=== PATIENT | female | born 1945 | race Caucasian/White ===

== ENCOUNTER 2017-02-24 06:30 | Day surgery (SDC) | payer MEDICARE, BC ==
[2017-02-24] MEDS ORDERED: Sodium Chloride 0.9% 1,000 ML IV SCH (07:00)
[2017-02-24] MEDS ORDERED: Midazolam 1 MG/ML 2 ML SDV ONE (07:35)
[2017-02-24] MEDS ORDERED: Propofol 200 MG/20 ML SDV ONE (07:35)
[2017-02-24] MEDS ORDERED: fentaNYL 100 MCG/2 ML SDV ONE (07:35)
[2017-02-24 09:06] VITALS: BP 138/76
--- NOTE | 2017-02-28 08:29 | OR ---
DATE OF PROCEDURE: 02/24/2017 PROCEDURE: Colonoscopy. FINDINGS: 1. Descending colon polyp approximately 5 mm, completely removed (using cold biopsy forceps). 2. Linear ulceration in the rectum (gently biopsied using cold biopsy forceps to rule out malignancy). 3. No diverticulitis; 1 diverticula left. COMPLICATIONS: None. K 9 POLICE OFFICER: None. ANESTHESIA: MAC. RISKS: Risks, benefits, alternatives, and limitations including, but not limited to infection, bleeding, and perforation were explained to the patient, and she wished to proceed. PROCEDURE IN DETAIL: The patient was placed in left lateral decubitus position. Digital rectal exam was performed without abnormality. The scope was introduced and advanced atraumatically to the ileocecal valve. A photo was taken. The scope was brought back to the ascending, transverse, descending colon, and retroflexed. At the colonic anastomosis, there was one small probable polyp or this could be a fold due to the anastomosis. Nonetheless, this was removed using cold biopsy forceps. The patient had one tic remaining, no other evidence of diverticulosis or diverticulitis. In the rectum, there was a linear ulceration, which was not actively bleeding, but was biopsied using cold biopsy forceps. No abnormalities of retroflexed. The patient tolerated the procedure well. Branden Lake MD /[id number]
== END 2017-02-24 09:40 | disposition home or self-care (01) ==
LOC: JP.SDS 06:30
PROVIDERS: ATTEND Surgery
DX: Z12.11 Encounter for screening for malignant neoplasm of colon (principal); K51.40 Inflammatory polyps of colon without complications; K62.1 Rectal polyp; K57.30 Diverticulosis of large intestine without perforation or abscess without bleeding; M19.90 Unspecified osteoarthritis, unspecified site; Z90.49 Acquired absence of other specified parts of digestive tract
CPT/HCPCS: 45380; J2250; J2704; J3010; J7040; 88305

== ENCOUNTER 2021-02-16 05:49 | Inpatient (IN) | payer MEDICARE, BC ==
[2021-02-16] MEDS ORDERED: Acetaminophen 500 MG Tab PO ONE (06:30)
[2021-02-16] MEDS ORDERED: Isosulfan Blue 5 ML SDV ONE (06:35)
[2021-02-16] MEDS: Dextrose 5%-Lactated Ringers 1,000 ML IV SCH ×2 (06:47→14:01)
[2021-02-16] MEDS ORDERED: fentaNYL 250 MCG/5 ML SDV ONE (07:14)
[2021-02-16] MEDS ORDERED: Glycopyrrolate 0.2 MG/ML 5 ML MDV ONE (07:15)
[2021-02-16] MEDS ORDERED: Neostigmine Methylsulfate 1 MG/ML 5 ML Syringe ONE (07:15)
[2021-02-16] MEDS ORDERED: Propofol 200 MG/20 ML SDV ONE (07:15)
[2021-02-16] MEDS ORDERED: Ondansetron 4 MG/2 ML SDV ONE (07:15)
[2021-02-16] MEDS ORDERED: Succinylcholine 200 MG/10 ML MDV ONE (07:15)
[2021-02-16] MEDS ORDERED: Rocuronium 50 MG/5 ML Vial ONE (07:15)
[2021-02-16] MEDS ORDERED: Dexamethasone 4 MG/ML SDV ONE (07:15)
[2021-02-16] MEDS ORDERED: ceFAZolin 2 GM in Premix Bag 1 BAG IV ONE (07:45)
[2021-02-16] MEDS ORDERED: Lactated Ringers 1,000 ML ONE (08:37)
[2021-02-16] MEDS ORDERED: HYDROmorphone 2 MG Tab PO PRN (10:58)
[2021-02-16] MEDS ORDERED: HYDROmorphone 1 MG/ML Syringe IV PRN (11:00)
[2021-02-16] MEDS ORDERED: Ondansetron 4 MG/2 ML SDV IVPUSH PRN (11:00)
[2021-02-16] MEDS ORDERED: HYDROmorphone 0.5 MG/0.5 ML Syringe IVPUSH PRN (11:00)
[2021-02-16] MEDS: Ketoconazole 2% Crm 30 GM Tube TOP SCH ×2 (11:44→20:40)
[2021-02-16] MEDS: Acetaminophen 325 MG Tab PO SCH ×2 (14:01→19:10)
[2021-02-16] MEDS: ceFAZolin 2 GM in Premix Bag 1 BAG IV SCH ×2 (14:01→21:28)
[2021-02-16] MEDS: traMADol 50 MG Tab PO PRN (14:07)
[2021-02-16] MEDS: Metoprolol Succinate 50 MG Tab.ER PO SCH (20:32)
[2021-02-16] MEDS: Zolpidem 5 MG Tab PO PRN (21:28)
[2021-02-17] MEDS: Dextrose 5%-Lactated Ringers 1,000 ML IV SCH ×3 (01:14→21:38)
[2021-02-17] MEDS: Acetaminophen 325 MG Tab PO SCH ×4 (01:21→20:02)
[2021-02-17] MEDS: ceFAZolin 2 GM in Premix Bag 1 BAG IV SCH (05:18)
[2021-02-17] MEDS: Citalopram 10 MG Tab PO SCH (08:20)
[2021-02-17] MEDS: Aspirin 81 MG Tab.EC PO SCH (08:20)
[2021-02-17] MEDS ORDERED: Metoprolol Succinate 50 MG Tab.ER PO SCH (09:00)
--- NOTE | 2021-02-17 09:35 | PN ---
DATE OF SERVICE: 02/17/2021 SUBJECTIVE: Stephany is postop day #1. Oral intake 200. Urine output 900. LANDY drains x4 has put out 150, 20, 25, and 20 of a light red drainage. Pain has been controlled with Tylenol. REVIEW OF SYSTEMS: Remainder of review of systems negative for any pertinent positives and negatives. OBJECTIVE: GENERAL: Stephany Ferrara is a pleasant 75-year-old female. VITAL SIGNS: TPR is 96.9, 53, 18, blood pressure 161/88. HEENT: Negative. NECK: Supple. HEART: Regular rate and rhythm. SKIN: Jhonatan wrap pressure dressing over bilateral mastectomy site incisions. ALNDY drains x4 as noted above. ABDOMEN: Soft, nontender. EXTREMITIES: Without peripheral edema. ASSESSMENT: Bilateral modified radical mastectomy for cancer, left breast, and prophylactic right mastectomy for left breast cancer. Date of procedure: 02/16/2021. Surgeon: Justin Granados MD. PLAN: 1. Regular diet. 2. Set up home health care. 3. LANDY drain home teaching. 4. Plan discharge in a.m. 5. We will evaluate p.r.n. or in a.m. Janine Perez PA-C /[id number]
[2021-02-17] MEDS: FIBER GUMMIES PO SCH (10:14)
[2021-02-17] MEDS: Ketoconazole 2% Crm 30 GM Tube TOP SCH ×2 (10:28→20:02)
[2021-02-17] MEDS: traMADol 50 MG Tab PO PRN ×2 (10:30→16:40)
[2021-02-17] MEDS: Zolpidem 5 MG Tab PO PRN (20:01)
[2021-02-17] MEDS: Metoprolol Succinate 50 MG Tab.ER PO SCH (20:01)
[2021-02-18] MEDS: Acetaminophen 325 MG Tab PO SCH ×3 (00:45→09:17)
[2021-02-18 04:12] VITALS: PULSE 51
[2021-02-18 07:37] VITALS: BP 139/61
[2021-02-18] MEDS: FIBER GUMMIES PO SCH (08:55)
[2021-02-18] MEDS: Citalopram 10 MG Tab PO SCH (09:17)
[2021-02-18] MEDS: Aspirin 81 MG Tab.EC PO SCH (09:17)
[2021-02-18] MEDS: Ketoconazole 2% Crm 30 GM Tube TOP SCH (09:18)
--- NOTE | 2021-02-18 14:06 | DISCH ---
ADMISSION DIAGNOSIS: Invasive ductal carcinoma of left breast. DISCHARGE DIAGNOSIS: 1. Bilateral modified radical mastectomy for cancer of the left breast and prophylactic right mastectomy for left breast cancer. 2. Date of procedure: 02/16/2021. Surgeon: Justin Granados MD. HISTORY: Stephany Ferrara is a pleasant 75-year-old female with left breast cancer. After preoperative evaluation and discussion of possible risks and possible complications, she wished to proceed with surgical procedure. HOSPITAL COURSE: Stephany had her surgery on 02/16/2021. She had no operative complications. On postoperative day #1, she was started on a regular diet and she was taught how to manage her 4 LANDY drains when she goes home. On postoperative day 2, Stephany was able to be discharged to home with no complications. PHYSICAL EXAMINATION: GENERAL: Stephany Ferrara is a pleasant 75-year-old female. Height is 5 feet 6.14 inches, weight is 160 pounds. VITAL SIGNS: TPR: 95.4, 51, 15. Blood pressure 139/61. HEENT: Negative. NECK: Supple. HEART: Regular rate and rhythm. LUNGS: Clear. CHEST: Mastectomy emy are intact. No hematoma or seroma noted at incision site. She has 4 LANDY drains and they have put out 105, 22, 45, and 45 respectively of a light red drainage. ABDOMEN: Negative. EXTREMITIES: Negative for peripheral edema. DISPOSITION: Discharged to home. CONDITION: Stable and improving. FOLLOWUP APPOINTMENT: With Justin Granados MD on 02/25/2021 at 10:30 a.m. She is to get an Oncology appointment made by nursing staff for that same day. MEDICATIONS: Resume home medications. 1. Tylenol 650 mg p.o. q.6 hours p.r.n. pain. 2. Aspirin 81 mg p.o. daily. 3. Celexa 30 mg p.o. daily. 4. Ketoconazole 2% cream topical b.i.d. to affected area. 5. Metoprolol succinate/Toprol-XL 50 mg p.o. at bedtime. 6. Ambien 2.5 mg p.o. at bedtime. 7. Fosamax 70 mg p.o. weekly. 8. Hydrochlorothiazide 12.5 mg p.o. daily p.r.n. DIET: Regular diet as tolerated. Drink 8 to 10 glasses of water a day. ACTIVITY: No lifting greater than 10 pounds for 6 weeks. Driving: Do not drive for 1 week. May shower. DISCHARGE INSTRUCTIONS: Keep operative site clean and dry. Wear clothing that is comfortable. Strip, empty, measure, and record LANDY drainage 4 times a day and bring record of drainage to clinic appointments. Notify provider if any fever, increased pain, swelling, redness, drainage, nausea, or vomiting. SPECIAL INSTRUCTION: Use incentive spirometer 10 times every hour while awake for 1 week. /[id number]
--- NOTE | 2021-02-22 15:31 | OR ---
DATE OF PROCEDURE: 02/16/2021 SURGEON: Justin Granados MD PREOPERATIVE DIAGNOSES: 1. Carcinoma of left breast. 2. The patient's desire for contralateral prophylactic mastectomy. OPERATIVE PROCEDURES: 1. Left modified radical mastectomy with injection procedure for sentinel lymph node biopsy ([id number]). 2. Left modified radical mastectomy with injection procedure for identification of sentinel lymph nodes ([id number]). ANESTHESIA: General. OUTSOLE CEMENTER MACHINE: Janine Perez PA-C INDICATIONS FOR PROCEDURE: A 75-year-old presenting with a carcinoma of the left breast that is located in the left upper outer quadrant and has positive ER and SD receptors and negative HER-2 assay. The patient after preoperative discussion wishes to proceed with a mastectomy. She also after discussion wished to proceed with a contralateral prophylactic mastectomy. She is aware that this would result in relatively modest breast reduction overall, but after formal discussion, did wish to proceed with a prophylactic contralateral mastectomy. Potential risks of procedure including bleeding, infection, or local or distant tumor recurrence as well as possibility of cardiopulmonary, septic, or hemorrhagic complications leading to were discussed. Possibility for radiation treatment of positive lymph nodes identified on final staging was also gone over, and the patient is aware that she may need chemotherapy and most likely not need adjuvant hormonal treatment postprocedure. DETAILS OF PROCEDURE: The patient was taken to the operating room and placed in a supine position. After general endotracheal anesthesia was induced, the left breast, axilla, and surrounding areas were prepped and draped. Over the area of the tumor in the left upper quadrant and in the subareolar dermis, 4 mL of isosulfan blue dye was injected. A transversely oriented elliptical incision was made encompassing the area of the subcutaneous biopsy site and nipple-areolar complex, carried down through the skin and subcutaneous tissue. Subcutaneous tissue flaps were then raised superiorly, inferiorly, laterally, and medially to the usual extent, and the breast was reflected off the chest wall in continuity with pectoralis major fascia. At no point was there a sense of any tumor or inflammatory response related to the tumor being nearby the plane of dissection. The lymphatic vessels were easily stained with blue and carried down into the axilla where some blue-stained nodes as well as some somewhat enlarged lymph nodes adjacent to that were identified and excised. These were sent for frozen section, which showed no evidence of metastatic disease. The area of resection was inspected. 2 Rex-King drains were then placed through stab wounds in incision and positioned across the area of dissection and from there into the axilla. Incision was closed with some 3-0 Vicryl stitch deep, emy for the skin and drains affixed with some 4-0 Vicryl stitch. Attention was then taken to the right side. The right side was similarly prepped and draped, and at that point, new instruments, gowns, and gloves had been obtained, and the subareolar dermis was injected again with 4 mL of isosulfan blue dye. Basically, an identical mastectomy was then accomplished on this side. In this case, sentinel lymph nodes were not sent for frozen section due to the low of metastatic disease. It was noted that sentinel lymph nodes were obtained in this case given the fact that after mastectomy, sentinel lymph node biopsy technique is not available and should there be an occult carcinoma identified in the prophylactically removed breast, we would be left with the difficulty of management of the lymph node from a surgical standpoint. The sentinel nodes were obtained after similar identification of the blue-stained components of the nodes, and these were sent for permanent section. The closure was identical as per the left side, and a dressing applied. The patient was taken to the recovery room in satisfactory condition. Physician inventory assistant, Janine Perez PA-C, played an essential role in assisting in this case, helping to position the patient, retract structures as needed, as well as suturing and cutting sutures when indicated. Her presence improved patient safety and decreased operative time. Justin Granados MD /[id number]
== END 2021-02-18 09:40 | disposition home or self-care (01) | DRG 580 ==
LOC: JP.MS 05:49 → JP.SDS 05:49 → EDSTATUS 08:15 → JP.MS 10:37
PROVIDERS: ADMIT Surgery; ATTEND Surgery
PROC: 0HBU0ZZ Excision of Left Breast, Open Approach (ICD-10-PCS; principal; 2021-02-16)
PROC: 07B60ZX Excision of Left Axillary Lymphatic, Open Approach, Diagnostic (ICD-10-PCS; 2021-02-16)
PROC: 0HBV0ZZ Excision of Bilateral Breast, Open Approach (ICD-10-PCS; 2021-02-16)
PROC: 07B60ZX Excision of Left Axillary Lymphatic, Open Approach, Diagnostic (ICD-10-PCS; 2021-02-16)
PROC: 07B50ZZ Excision of Right Axillary Lymphatic, Open Approach (ICD-10-PCS; 2021-02-16)
DX: C50.912 Malignant neoplasm of unspecified site of left female breast (principal); Q60.0 Renal agenesis, unilateral; F41.9 Anxiety disorder, unspecified; M54.2 Cervicalgia; G89.29 Other chronic pain; E78.5 Hyperlipidemia, unspecified; I10 Essential (primary) hypertension; G47.00 Insomnia, unspecified; K57.30 Diverticulosis of large intestine without perforation or abscess without bleeding; K58.9 Irritable bowel syndrome, unspecified; Z79.82 Long term (current) use of aspirin; Z79.899 Other long term (current) drug therapy
CPT/HCPCS: 94762; 97161-GP; 97535-GP; A9270-GY; J0330; J0690; J1100; J2405; J2704; J2710; J3010; J3490; J7120; J7121; Q9968